=== PATIENT | female | born 1970 | race Two or more races ===

== ENCOUNTER 2025-01-30 16:06 | Emergency (ER) | payer OTHER ==
[~2025-01-30] VITALS: Ht 170.2 cm; Wt 63.5 kg
[2025-01-30] MEDS ORDERED: GENTAMICIN SULFATE 0.15 MG/DR DROPS 5ML OP ONE ×2 (17:54→18:30)
[2025-01-30] MEDS ORDERED: TOBRAMYCIN 20 DR/ML DROPS 5ML BOTTLE OP ONE (18:00)
[2025-01-30] MEDS ORDERED: TETRACAINE HCL 20 DR/ML DROPS OP ONE (18:00)
== END 2025-01-30 18:24 | disposition home or self-care (01) ==
LOC: ER 16:06
DX: H10.213 Acute toxic conjunctivitis, bilateral (principal); Z88.1 Allergy status to other antibiotic agents